=== PATIENT | male | born 1955 | race Caucasian/White ===

== ENCOUNTER 2017-01-04 09:26 | Day surgery (SDC) | payer OTHER ==
[~2017-01-04] VITALS: Ht 188 cm; Wt 102.1 kg
[~2017-01-04 09:26] MED LIST: AMBIEN10 MG PO; DESYREL100 MG PO; LEVOTHYROXINE88 MCG PO; MELOXICAM7.5 MG PO; METHADONE10 MG PO; PAROXETINE HCL20 MG PO; PAROXETINE HCL30 MG PO; ZOLPIDEM TARTRA10 MG PO
== END 2017-01-04 11:04 | disposition home or self-care (01) ==
LOC: PAIN 09:26 → CATH 10:00 → SDC 10:00 → PAIN 11:04
DX: M47.816 Spondylosis without myelopathy or radiculopathy, lumbar region (principal); M54.5 Low back pain; G89.29 Other chronic pain; M96.1 Postlaminectomy syndrome, not elsewhere classified; E03.9 Hypothyroidism, unspecified; F32.9 Major depressive disorder, single episode, unspecified; Z79.82 Long term (current) use of aspirin
CPT/HCPCS: J1030; J2250; J3010; S0020